=== PATIENT | male | born 1955 | race Caucasian/White ===

== ENCOUNTER 2017-08-31 13:56 | Day surgery (SDC) | payer OTHER ==
[~2017-08-31] VITALS: Ht 162.6 cm; Wt 66.3 kg
[2017-08-31] VITALS (8 sets, daily range): BP systolic 130–156; BP diastolic 68–98
[~2017-08-31 13:56] MED LIST: ASPI-611 PO; CARV6.253 PO; CYAN1TAB41 PO; LISI-222 PO
[2017-08-31] MEDS ORDERED: diphenhydrAMINE 25mg capsule PO PRN (14:35)
[2017-08-31] MEDS ORDERED: normal saline 1000ml 1,000 ML IV SCH ×2 (14:35→17:50)
[2017-08-31] MEDS ORDERED: LORazepam 0.5 MG tablet PO PRN (14:35)
[2017-08-31] MEDS ORDERED: LOSA1TAB3 PO (14:52)
[2017-08-31] MEDS ORDERED: CARV-50 PO (14:58)
[2017-08-31] MEDS ORDERED: fentaNYL/PF 50MCG/1 ML 2ML syringe ONE (16:29)
[2017-08-31] MEDS ORDERED: midazolam 2 mg/2 ml injection ONE (16:29)
[2017-08-31] MEDS ORDERED: iohexol 350MG/ML 100ml bottle IV ONE ×2 (16:29→16:57)
[2017-08-31] MEDS ORDERED: heparin 1,000unit/ml 10ml vial 10 ML ONE (16:54)
[2017-08-31] MEDS ORDERED: ticagrelor 90mg tablet ONE (17:13)
[2017-08-31] MEDS ORDERED: OXAZEpam 15mg capsule PO PRN (17:50)
[2017-08-31] MEDS ORDERED: HYDROcodone/acetaminophen 5mg/325mg tablet PO PRN (17:50)
[2017-08-31] MEDS ORDERED: ondansetron/PF 4mg/2ml inj IV PRN (17:50)
[2017-08-31] MEDS ORDERED: HYDROcodone/acetaminophen 10/325mg tab PO PRN (17:50)
[2017-08-31] MEDS ORDERED: proCHLORperazine 10 MG/2 ml inj IV PRN (17:50)
[2017-08-31] MEDS ORDERED: ACETYLCYSTEINE 200 MG/1 ML 4 ML ORAL SOLUTION PO SCH (20:00)
== END 2017-08-31 20:30 | disposition home or self-care (01) ==
LOC: SSTAY O 13:56
PROVIDERS: ATTEND Internal Medicine Interventional Cardiology
DX: I25.10 Atherosclerotic heart disease of native coronary artery without angina pectoris (principal); I10 Essential (primary) hypertension; F17.210 Nicotine dependence, cigarettes, uncomplicated; E78.5 Hyperlipidemia, unspecified; F10.21 Alcohol dependence, in remission; Z86.79 Personal history of other diseases of the circulatory system; Z95.0 Presence of cardiac pacemaker; Z98.42 Cataract extraction status, left eye; Z98.41 Cataract extraction status, right eye; Z98.52 Vasectomy status; Z79.82 Long term (current) use of aspirin; Z79.899 Other long term (current) drug therapy; Z98.890 Other specified postprocedural states
CPT/HCPCS: 93005; 93458; 99152; 99153; A6257; C1725; C1760; C1769; C1874; C9600; C9601; J1644; J2250; J7030; Q0163; Q9967; A4620; J3010

== ENCOUNTER 2017-10-16 07:51 | Emergency (ER) | payer OTHER ==
[~2017-10-16] VITALS: Ht 162.6 cm; Wt 68.2 kg
[~2017-10-16 07:51] MED LIST changes: +CARV-50 PO; -CARV6.253 PO; -LISI-222 PO; +LOSA1TAB3 PO
[2017-10-16 10:13] LABS: ALBUMIN 3.4 G/DL (3.4-5.0); ANION GAP 10 (8-16); BLOOD UREA NITROGEN 40 MG/DL (7-18); BUN/CREATININE RATIO 26.8 (5.4-32.0); CALCIUM 9.1 MG/DL (8.5-10.1); CHLORIDE 102 MMOL/L (99-107); CREATININE 1.49 MG/DL (0.60-1.10); GLUCOSE 108 MG/DL (70-104); SODIUM 137 MMOL/L (135-145); TOTAL CARBON DIOXIDE 25.2 MMOL/L (24-32); eGFR 47 ML/MIN
[2017-10-16 11:07] VITALS: BP 135/78
== END 2017-10-16 11:08 | disposition home or self-care (01) ==
LOC: ER 07:51
DX: T82.191A Other mechanical complication of cardiac pulse generator (battery), initial encounter (principal); I25.10 Atherosclerotic heart disease of native coronary artery without angina pectoris; Z79.82 Long term (current) use of aspirin
CPT/HCPCS: 36415; 80048; 93005; 99285

== ENCOUNTER 2023-10-18 08:13 | Day surgery (SDC) | payer MEDICARE, MEDICAID ==
[2023-10-12 11:57] LABS: BASOPHILS # (AUTO) 0.1 X10'3 (0-0.2); BASOPHILS % (AUTO) 0.6 % (0-1); EOSINOPHILS # (AUTO) 0.3 X10'3 (0-0.9); EOSINOPHILS % (AUTO) 2.9 % (0-6); LYMPHOCYTES # (AUTO) 1.1 X10'3 (1.1-4.8); LYMPHOCYTES % (AUTO) 12.7 % (21-51); MEAN CORPUSCULAR HEMOGLOBIN 31.8 PG (27.0-31.0); MEAN CORPUSCULAR HGB CONC 33.1 g/dL (33.0-36.5); MEAN CORPUSCULAR VOLUME 95.9 FL (78-98); MEAN PLATELET VOLUME 8.7 FL (7.4-10.4); MONOCYTES % (AUTO) 11.3 % (2-12); NEUTROPHILS # (AUTO) 6.4 X10'3 (1.8-7.7); NEUTROPHILS % (AUTO) 72.5 % (42-75); PRE OP HEMATOCRIT 39.2 % (42.0-52.0); PRE OP PLATELET COUNT 257 X10'3 (140-440); PRE OP WHITE BLOOD COUNT 8.9 10'3 (4.8-10.8); RED BLOOD COUNT 4.09 X10'6 (4.70-6.10); RED CELL DISTRIBUTION WIDTH 16.3 % (11.5-14.5)
[2023-10-12 12:05] LABS: ALBUMIN 3.7 G/DL (3.4-5.0); ALKALINE PHOSPHATASE 49 IU/L (46-116); BLOOD UREA NITROGEN 24 MG/DL (7-18); BUN/CREATININE RATIO 17.3 (10.0-20.0); CALCIUM 8.6 MG/DL (8.5-10.1); CHLORIDE 105 MMOL/L (99-107); CREATININE 1.39 MG/DL (0.60-1.10); PRE OP ALT 47 U/L (30-65); PRE OP ANION GAP 9 (8-16); PRE OP AST 25 U/L (10-37); PRE OP BILIRUB, TOTAL 1.1 MG/DL (0.0-1.0); PRE OP GLUCOSE 94 MG/DL (70-104); PRE OP POTASSIUM 4.5 MMOL/L (3.4-5.1); PRE OP SODIUM 140 MMOL/L (135-145); TOTAL CARBON DIOXIDE 25.6 MMOL/L (24-32); TOTAL PROTEIN 7.3 G/DL (6.4-8.2); eGFR 51 ML/MIN
[2023-10-17] MEDS: DOCUMENT DATE & TIME OF BETA-BLOCKER PO ONE (19:00)
[2023-10-18] VITALS (15 sets, daily range): BP systolic 134–150; BP diastolic 65–102; PULSE 65–73; RESP 12–19; TEMP 98.3; O2SAT 90–96
[~2023-10-18] VITALS: Ht 162.6 cm; Wt 75.8 kg
[2023-10-18] MEDS: cefazolin 2gm/D5W 100mL 100 ML IV ONE (05:30)
[~2023-10-18 08:13] MED LIST changes: +AMIO200T27 PO; -ASPI-611 PO; +ATOR-2 PO; -CYAN1TAB41 PO; +EZET10TA48 PO; -LOSA1TAB3 PO; +SPIR50TA PO; +VALS1TAB73 PO; +WARF-55 PO; +enalaprilat dihydrate 2.5mg/2ml vial IV PRN; +labetalol 20mg/4ml (5mg/ml) syringe IV PRN; +meperidine/PF 25mg/ml syringe IV PRN; +morphine 2 MG/ML inj. syringe IV PRN; +morphine 4 MG/ML inj SYRINge IV PRN; +ondansetron/PF 4mg/2ml inj IV PRN; +proCHLORperazine 10 MG/2 ml inj IV PRN; +ringers solution, lacted 1,000 ML IV SCH
[2023-10-18] MEDS: famotidine 20mg tablet PO ONE (08:58)
[2023-10-18] MEDS: ringers solution, lacted 1,000 ML IV SCH (08:59)
[2023-10-18] MEDS ORDERED: propofol inj 20 ML IV ONE (09:03)
[2023-10-18] MEDS ORDERED: midazolam 1 mg/ML 2ml injection ONE (09:04)
[2023-10-18] MEDS ORDERED: LIDOcaine 1%/PF 5ML 10 MG/ML VIAL ONE (09:04)
[2023-10-18] MEDS ORDERED: fentaNYL/PF 50MCG/1 ML 2ML syringe ONE (09:04)
[2023-10-18] MEDS ORDERED: LIDOcaine 1% (10mg/ml)w/preservative inj. 20ml MDV ONE (09:10)
[2023-10-18] MEDS ORDERED: BUPIVAcaine/PF 2.5mg/ml (0.25%) 10ml vial ONE (09:11)
[2023-10-18] MEDS ORDERED: desflurane 240ml liquid inh. IH ONE (09:22)
[2023-10-18 09:31] LABS: INR 1.1 INR; PRE OP PARTIAL THROMB. TIME 25 SECONDS (22-32); PROTHROMBIN TIME 11.3 SECONDS (9.0-12.0)
[2023-10-18] MEDS: LIDOcaine 1% 30ml preserv. free vial IJ ONE (10:06)
[2023-10-18] MEDS ORDERED: acetaminophen 1,000mg/100ml IV 100 ML IV ONE (10:36)
[2023-10-18] MEDS ORDERED: ondansetron/PF 4mg/2ml inj ONE (10:39)
[2023-10-18] MEDS: HYDROcodone/acetaminophen 5mg/325mg tablet PO PRN (13:55)
[2023-10-18] MEDS ORDERED: LidoCAINE 2% Topical Jelly 11mL syringe (UROJET) TOP ONE (15:30)
== END 2023-10-18 16:29 | disposition home or self-care (01) ==
LOC: PAS 08:13
PROVIDERS: ATTEND Surgery
DX: K40.90 Unilateral inguinal hernia, without obstruction or gangrene, not specified as recurrent (principal); I10 Essential (primary) hypertension; I48.91 Unspecified atrial fibrillation; Z79.899 Other long term (current) drug therapy; Z79.01 Long term (current) use of anticoagulants; Z87.891 Personal history of nicotine dependence; Z98.890 Other specified postprocedural states; Z95.0 Presence of cardiac pacemaker
CPT/HCPCS: 36415; 49650; 80053; 82948; 85025; 85610; 85730; A4215; A4314; A4618; C1781; J0131; J0665; J0690; J2001; J2250; J2405; J2704; J3010; J3490; J7030; J7120; Z7506; Z7508; Z7512; Z7610; J1100; J2710